=== PATIENT | male | born 1955 | race Caucasian/White ===

== ENCOUNTER → 2016-06-13 | Outpatient (CLI) | payer BC ==
--- NOTE | 2016-06-13 12:32 | CT ---
EXAMINATION TYPE: CT chest w con DATE OF EXAM: 06/13/2016 11:23 AM COMPARISON: 06/29/2015 and 09/02/2006 HISTORY: 61-year-old male Follow up nodule, solitary pulmonary nodule. TECHNIQUE: Contiguous axial scanning of the chest after the administration of 100 ml mL of Omnipaque 300. Coronal/sagittal reconstructions performed. CT DLP: 345mGycm. Automatic exposure control utilized for a dose reduction. FINDINGS: Heart is normal size without pericardial effusion. Aorta is normal caliber with conventional arch vessel branching anatomy. No thoracic lymphadenopathy Redemonstrated are scattered bilateral pulmonary nodules measuring up to 8 mm, all of which are stabl e. There appears to be very mild emphysematous change. Interval clearance of the previous nodular infiltrate in the basilar right middle lobe. Mild diffuse bronchial wall thickening is redemonstrated. No consolidation or pleural effusion. Hypodense lesions within the liver are unchanged from 06/29/2015 with a couple larger from 2006, all s uggestive of cysts. Bones: Mild endplate spondylosis mid to lower thoracic spine. No osseous destructive process. IMPRESSION: 1. The previously seen nodular infiltrate at the basilar right middle lobe has cleared. 2. Scattered benign pulmonary nodules measuring up to 8 mm are unchanged. 3. COPD with mild emphysema.
== END | disposition home or self-care (01) ==
LOC: RADCTMAIN 10:34
PROVIDERS: ATTEND Internal Medicine
DX: R91.8 Other nonspecific abnormal finding of lung field (principal); J44.9 Chronic obstructive pulmonary disease, unspecified
CPT/HCPCS: 71260; Q9967

== ENCOUNTER → 2016-06-13 | Outpatient (CLI) | payer BC ==
--- NOTE | 2016-06-13 11:08 | US ---
EXAMINATION TYPE: US abdomen complete DATE OF EXAM: 06/13/2016 10:31 AM COMPARISON: NONE CLINICAL HISTORY: R94.5 abnormal results of liver function test. elevated labwork, no complaints of p ain per pt EXAM MEASUREMENTS: Liver Length: 14.6 cm Gallbladder Wall: 0.2 cm CBD: 0.4 cm Spleen: 10.4 cm Right Kidney: 11.2 x 4.4 x 5.7 cm Left Kidney: 10.9 x 5.8 x 5.6 cm Findings: some exam limitations due to overlying bowel gas and barrel chested habitus Pancreas: body/tail gassed out, head/body wnl Liver: few scattered cysts, largest at left lobe 1.4cm with septation Gallbladder: seen with a fundal fold Evidence for sonographic Mccray's sign: wnl CBD: wnl Spleen: wnl Right Kidney: wnl Left Kidney: wnl Upper IVC: wnl Abd Aorta: wnl The liver is homogenous. Several scattered hepatic cysts with septations. The intrahepatic portion of the IVC and proximal abdominal aorta are within normal limits. There is no evidence of cholelithias is. Common bile duct is unremarkable. The visualized portions of the pancreas are homogenous. The spleen is unremarkable. Kidneys are symmetric and free of hydronephrosis. No renal lesions are seen . IMPRESSION: Hepatic cysts. Otherwise unremarkable study.
== END | disposition home or self-care (01) ==
LOC: RADUSWWP 10:03
PROVIDERS: ATTEND Internal Medicine
DX: K76.89 Other specified diseases of liver (principal); R94.5 Abnormal results of liver function studies
CPT/HCPCS: 76700

== ENCOUNTER 2016-06-14 12:46 | Emergency (ER) | payer BC ==
[2016-06-14 12:54] VITALS: BP 165/93; PULSE 76; RESP 20; TEMP 98.3
--- NOTE | 2016-06-14 13:20 | ED ---
General Adult HPI - General Chief complaint: Extremity Injury, Lower Stated complaint: Right Ankle Injury Time Seen by Provider: 06/14/16 13:13 Source: patient, RN notes reviewed Mode of arrival: ambulatory Limitations: no limitations - History of Present Illness Initial comments: Patient 61-year-old male who presents emergency room today with chief complaint of injury to the right ankle that occurred earlier this morning. He does admit that he rolled it when he was working out. Does admit to pain over the lateral aspect. He denies any other injuries or complaints. Patient denies any recent fever, chills, shortness of breath, chest pain, back pain, abdominal pain, nausea or vomiting, numbness or tingling, dysuria or hematuria, constipation or diarrhea, headaches or visual changes, or any other complaints. - Related Data Home Medications Medication Instructions Recorded Confirmed Lisinopril [Zestril] 10 mg PO DAILY 06/14/16 06/14/16 Allergies Allergy/AdvReac Type Severity Reaction Status Date / Time aspirin Allergy Rash/Hives Verified 06/14/16 12:54 Review of Systems ROS Statement: Those systems with pertinent positive or pertinent negative responses have been documented in the HPI. ROS Other: All systems not noted in ROS Statement are negative. Past Medical History Past Medical History: Hypertension History of Any Multi-Drug Resistant Organisms: None Reported Additional Past Surgical History / Comment(s): skin cancer removed from right wrist in 2014 Past Psychological History: No Psychological Hx Reported Smoking Status: Never smoker Past Alcohol Use History: None Reported, Occasional Past Drug Use History: None Reported General Exam - General Exam Comments Initial Comments: General: The patient is awake and alert, in no distress, and does not appear acutely ill. Neck: The neck is supple, there is no tenderness or JVD. Cardiovascular: There is a regular rate and rhythm. No murmur, rub or gallop is appreciated. Respiratory: Lungs are clear to auscultation, respirations are non-labored, breath sounds are equal. No wheezes, stridor, rales, or rhonchi. Musculoskeletal: Patient does have moderate swelling over the lateral aspect of the right ankle. Sensations are intact pulses equal bilaterally 2+. Patient does have tenderness over lateral malleolus. Tender in the ATFL area. No tenderness down into the metatarsals. No tenderness to the right knee. Neurological: A&O x 3. CN II-XII intact, There are no obvious motor or sensory deficits. Coordination appears grossly intact. Speech is normal. Skin: Skin is warm and dry and no rashes or lesions are noted. Psychiatric: Normal mood and affect. Limitations: no limitations Course Vital Signs 06/14/16 12:48 Temperature 98.3 F Pulse Rate 76 Respiratory 20 Rate Blood Pressure 165/93 O2 Sat by Pulse 98 Oximetry Medical Decision Making - Medical Decision Making Patient's x-rays reviewed shows no acute fracture dislocation. Results were discussed with the patient. Patient will be placed in Aircast blood here in the emergency room. Advised follow-up the next 7 tenderness for repeat x-rays if symptoms persist. Advised continued ice elevate. Disposition Clinical Impression: Ankle sprain Disposition: HOME SELF-CARE Condition: Good Instructions: Ankle Sprain (ED) Additional Instructions: Please continue to ice elevate the affected area these 4 times a day for 20 minutes at a time. Please follow-up with family doctor or orthopedics in 7-10 days for repeat x-rays if symptoms persist. Please return to emergency room for any other concerns. Referrals: Leti Pritchard MD [Primary Care Provider] - 1-2 days Samuel Frey DO [Doctor of Osteopathic Medicine] - 1-2 days Time of Disposition: 13:52
--- NOTE | 2016-06-14 13:43 | XR ---
EXAMINATION TYPE: XR ankle complete RT DATE OF EXAM: 06/14/2016 1:17 PM COMPARISON: NONE HISTORY: 61-year-old male right ankle pain and swelling after twisting injury today TECHNIQUE: 3 views FINDINGS: There is anterior and lateral malleolar soft tissue swelling with underlying ankle joint effusion. An kle mortise remains congruent with preservation of the distal tibiofibular overlap. No acute fracture , subluxation, or dislocation. IMPRESSION: Anterior and lateral soft tissue swelling. No acute osseous abnormality seen.
== END 2016-06-14 14:31 | disposition home or self-care (01) ==
LOC: EC 12:46
DX: S93.409A Sprain of unspecified ligament of unspecified ankle, initial encounter (principal); X50.1XXA Overexertion from prolonged static or awkward postures, initial encounter; I10 Essential (primary) hypertension; Z79.899 Other long term (current) drug therapy; Z88.6 Allergy status to analgesic agent
CPT/HCPCS: 73610; 99283; L4350

== ENCOUNTER → 2017-12-16 | Outpatient (CLI) | payer BC | END | disposition home or self-care (01) | LOC: LABWHC1 10:47 | PROVIDERS: ATTEND Otolaryngology | DX: J30.89 Other allergic rhinitis (principal) | CPT/HCPCS: 36415 ==

== ENCOUNTER → 2018-09-18 | Outpatient (CLI) | payer BC ==
[2018-09-18 09:33] LABS: HCT 47.1 % (39.0-53.0); HGB 15.7 gm/dL (13.0-17.5); MCH 30.9 pg (25.0-35.0); MCHC 33.4 g/dL (31.0-37.0); MCV 92.6 fL (80.0-100.0); Mean Platelet Volume 12.8; RBC 5.09 m/uL (4.30-5.90); RDW 12.4 % (11.5-15.5); WBC 5.6 k/uL (3.8-10.6)
[2018-09-18 15:15] LABS: Eosinophils # (M) 0.34 k/uL (0-0.7); Lymphocytes # (M) 0.84 k/uL (1.0-4.8); Monocytes # (M) 0.95 k/uL (0-1.0); Neutrophils # (M) 3.47 k/uL (1.3-7.7); Neutrophils % (M) 62 %; Nucleated Red Blood Cells 0 /100 WBC (0-0); Total Cells Counted 100
== END | disposition home or self-care (01) ==
LOC: LABWHC1 08:05
PROVIDERS: ATTEND Physician Assistant Medical
DX: L11.1 Transient acantholytic dermatosis [Grover] (principal)
CPT/HCPCS: 36415; 82955; 85025

== ENCOUNTER 2019-10-04 15:53 | Emergency (ER) | payer BC ==
[2019-10-04 15:58] VITALS: BP 159/87; PULSE 78; RESP 18; TEMP 97.9
[2019-10-04] MEDS ORDERED: LIDOCAINE 1% INJ 10MG/ML (20 ML MDV) SQ ONE (16:20)
[2019-10-04] MEDS ORDERED: DIPH,PERTUS(ACELL)TETVAC-LF 0.5 ML VIAL IM ONE (16:21)
--- NOTE | 2019-10-04 16:39 | ED ---
Head Injury HPI - General Source: patient, RN notes reviewed, old records reviewed Mode of arrival: wheelchair Limitations: no limitations <Tasha Du - Last Filed: 10/07/19 16:46> <Susan Mello - Last Filed: 10/10/19 01:06> - General Chief complaint: Head Injury Stated complaint: Fall, head injury Time Seen by Provider: 10/04/19 15:59 - History of Present Illness Initial comments: 64 year old male presents to ED with CC of head injury and laceration to the back of the head. Patient reports he was getting into his truck after a doctor appt and and slipped and hit his head on the edge of the door in the vehicle. Patient reports no loss of consciousness. PAtient is not on blood thinners. This occured 4 hours prior to arrival. Patient denies AMS or confusion or visual changes. Denies weakness or dizziness or nausea. (Tasha Du) - Related Data Home Medications Medication Instructions Recorded Confirmed Lisinopril [Zestril] 10 mg PO DAILY 06/14/16 06/14/16 Previous Rx's Medication Instructions Recorded Hydrocodone/Acetaminophen [[place] 1 tab PO Q6HR PRN #12 tab 03/03/18 5-325] Allergies/Adverse reactions: Allergies Allergy/AdvReac Type Severity Reaction Status Date / Time aspirin Allergy Rash/Hives Verified 03/03/18 21:11 Penicillins Allergy Rash/Hives Verified 10/04/19 15:57 Review of Systems ROS Other: All systems not noted in ROS Statement are negative. <Tasha Du - Last Filed: 10/07/19 16:46> ROS Other: All systems not noted in ROS Statement are negative. <Susan Mello - Last Filed: 10/10/19 01:06> ROS Statement: Those systems with pertinent positive or pertinent negative responses have been documented in the HPI. Past Medical History Past Medical History: Hypertension History of Any Multi-Drug Resistant Organisms: None Reported Past Surgical History: No Surgical Hx Reported Additional Past Surgical History / Comment(s): skin cancer removed from right wrist in 2014 Past Psychological History: No Psychological Hx Reported Smoking Status: Never smoker Past Alcohol Use History: None Reported, Occasional Past Drug Use History: None Reported <Tasha Du - Last Filed: 10/07/19 16:46> General Exam Limitations: no limitations General appearance: alert, in no apparent distress Head exam: Present: normocephalic, normal inspection. Absent: atraumatic (4cm laceration over posterior scalp. linear) Eye exam: Present: normal appearance, PERRL, EOMI. Absent: scleral icterus, conjunctival injection, periorbital swelling ENT exam: Present: normal exam, mucous membranes moist Neck exam: Present: normal inspection. Absent: tenderness, meningismus, lymphadenopathy Respiratory exam: Present: normal lung sounds bilaterally. Absent: respiratory distress, wheezes, rales, rhonchi, stridor Cardiovascular Exam: Present: regular rate, normal rhythm, normal heart sounds. Absent: systolic murmur, diastolic murmur, rubs, gallop, clicks GI/Abdominal exam: Present: soft, normal bowel sounds. Absent: distended, tenderness, guarding, rebound, rigid Neurological exam: Present: alert, oriented X3, CN II-XII intact Psychiatric exam: Present: normal affect, normal mood Skin exam: Present: warm, dry, intact, normal color. Absent: rash <Tasha Du - Last Filed: 10/07/19 16:46> - General Exam Comments Initial Comments: 64 year old male, no acute distress. Alert and oriented X3. (Tasha Du) Course Vital Signs 10/04/19 15:55 Temperature 97.9 F Pulse Rate 78 Respiratory 18 Rate Blood Pressure 159/87 O2 Sat by Pulse 98 Oximetry Procedures - Laceration Laceration #1 Site: scalp Size (cm): 4 Description: linear Depth: simple, single layer Anesthetic Used: lidocaine 1% Anesthesia Technique: local infiltration Amount (mls): 5 Pre-repair: wound explored, irrigated extensively Type of Sutures: other (staple) Number of Sutures: 4 Patient Tolerated Procedure: well, no complications <Tasha Du - Last Filed: 10/07/19 16:46> Medical Decision Making <Tasha Du - Last Filed: 10/07/19 16:46> <Susan Mello - Last Filed: 10/10/19 01:06> - Medical Decision Making 64 year old male with posterior scalp laceration from hitting on car door frame. PAtient has no LOC. No mental statsu changes and no neurodeficits. Patient injury was 4 hours ago. Patient laceration was cleaned and vclosed with [address] PAtient [address] scan and through shared decision making decided against this. Discussed staple care and monitor for infection. (Tasha Du) I was available for consultation in the emergency department. The history and physical exam were done by the midlevel provider. I was consulted for this patients care. I reviewed the case with the midlevel provider and based on their presentation of the patient, I agree with the assessment, medical decision making and plan of care as documented. Chart was dictated using Qiniu dictation software. Attempts were made to correct any dictation errors however some typographical errors may persist. Patient was seen during a national state of emergency due to the Covid-19 pandemic. (Susan Mello) Disposition Is patient prescribed a controlled substance at d/c from ED?: No Time of Disposition: 16:39 <Tasha Du - Last Filed: 10/07/19 16:46> <Susan Mello - Last Filed: 10/10/19 01:06> Clinical Impression: Scalp laceration Disposition: HOME SELF-CARE Condition: Good Instructions (If sedation given, give patient instructions): Concussion (ED), Staple Care (ED) Additional Instructions: Please return to the emergency room in 7-10 days to have juan daniel removed. Please leave wound covered for the first 24-48 hours and then leave open to air after that time. Please use clean soap and water to clean the suture area to prevent s cabbing over the top of your juan daniel. Please watch for any signs of infection which may include but not limited to increased pain, swelling, redness, fever or chills. Please return to the emergency room if any signs of infection do occur. Please return to the emergency room for any other concerns or complications. Referrals: Leti Pritchard MD [Primary Care Provider] - 1-2 days
== END 2019-10-04 17:00 | disposition home or self-care (01) ==
LOC: EC 15:53
DX: S01.01XA Laceration without foreign body of scalp, initial encounter (principal); I10 Essential (primary) hypertension; Z79.899 Other long term (current) drug therapy; Z88.0 Allergy status to penicillin; Z88.6 Allergy status to analgesic agent; Z85.828 Personal history of other malignant neoplasm of skin; Z23 Encounter for immunization; W19.XXXA Unspecified fall, initial encounter
CPT/HCPCS: 90715; 90471; 99283; J2001

== ENCOUNTER 2020-05-15 13:07 | Day surgery (SDC) | payer BC ==
[~2020-05-15 13:07] MED LIST: Pre Op ABX Message 1 EACH MISC MISCELLANE ONE
[2020-05-15] MEDS ORDERED: LACTATED RINGERS 1,000 ML IV ONE ×3 (13:19→16:15)
[2020-05-15] MEDS ORDERED: LIDOCAINE 1% (10MG/ML) FOR IV START INTRADERMA ONE (13:49)
[2020-05-15] MEDS ORDERED: ONDANSETRON 4 MG/2 ML VIAL ONE (13:52)
[2020-05-15] MEDS ORDERED: HYDROmorphone (PF) 1 MG/ML ONE (13:54)
[2020-05-15] MEDS ORDERED: PROPOFOL 10 MG/ML 20 ML VIAL IV ONE (13:54)
[2020-05-15] MEDS ORDERED: fentaNYL (PF) 50 MCG/ML 2 ML AMP ONE (13:54)
[2020-05-15] MEDS ORDERED: MIDAZOLAM 2 MG/2 ML VIAL ONE (13:54)
[2020-05-15] MEDS ORDERED: LIDOCAINE 1% INJ 10MG/ML (20 ML MDV) ONE (13:54)
[2020-05-15] MEDS ORDERED: KETOROLAC 15 MG/ML 1 ML VIAL ONE (13:54)
[2020-05-15] MEDS ORDERED: HYDROmorphone 0.2 MG/1 ML SYRINGE IVP PRN (14:00)
[2020-05-15] MEDS ORDERED: HYDROcodone/APAP 5-325MG 1 EACH TAB PO PRN (14:00)
[2020-05-15] MEDS ORDERED: ONDANSETRON 4 MG/2 ML VIAL IVP PRN (14:00)
[2020-05-15] MEDS ORDERED: hydrOXYzine pamoate 25 MG CAP PO PRN (14:00)
[2020-05-15] MEDS ORDERED: HYDROmorphone 1 MG/ML 1 ML SYRINGE IVP PRN (14:00)
[2020-05-15] MEDS ORDERED: HYDROmorphone 0.5 MG/0.5 ML SYRINGE IVP PRN (14:00)
[2020-05-15] MEDS ORDERED: SENNOSIDES-DOCUSATE SODIUM 1 EACH TAB PO PRN (14:00)
[2020-05-15] MEDS ORDERED: BUPIVACAINE (PF) 0.25% 30 ML VIAL SQ ONE (14:45)
--- NOTE | 2020-05-15 14:56 | P.OP ---
Date of Procedure: 05/15/20 Preoperative Diagnosis: Rupture patellar tendon right knee Postoperative Diagnosis: Rupture patellar tendon right knee Procedure(s) Performed: Patellar tendon repair right knee Anesthesia: GETA Surgeon: Gurjit Marie Grape Cutter #1: Jodi Johnson Estimated Blood Loss (ml): 10 Pathology: none sent Condition: stable Disposition: PACU Indications for Procedure: This is a 64-year-old gentleman that sustained an injury to his right knee proximally week ago. MRI was performed which showed a rupture of his patellar tendon, and after discussing the surgical and nonsurgical treatment options with him and his at length I've recommended repair of the patellar tendon of his right knee and informed consent was obtained. Operative Findings: The operative findings are consistent with a rupture of patellar tendon of the right knee Description of Procedure: Patient was seen and evaluated in the preoperative area, and the operative site was marked with a skin marker. Patient was then brought to the operating room and given 2 g of Ancef intravenously. A general anesthetic was administered by the anesthesia department. Tourniquet was placed on the right upper thigh and the right lower extremities and prepped and draped in the usual sterile fashion. A universal timeout was then performed confirming the patient's name, surgical site, ALLERGIES, and consent. The right lower extremity was then exsanguinated and the tourniquet was inflated to 250 mmHg. Straight midline incision was then made with a skin subcu tissues tissue sharply incised. The patellar tendon was readily visualized and was found to be completely ruptured off the inferior pole of the patella. There was a hematoma which was evacuated and there was some fibrotic tissue which was excised. Next, utilizing #5 FiberWire modified Krackow suture's were placed in the proximal portion of the patellar tendon. Next drill holes were placed through the patella and the sutures were passed of these drill holes. The suture was then tied at the superior aspect of the patella after the patellar tendon was cinched up against the inferior pole patella. #1 Vicryl suture was then used to repair the retinaculum around the patellar tendon rupture. The knee was then taken through a light range of motion and the repair was found to be stable. The knee was then irrigated with pulsatile lavage. 30 mL of quarter percent plain Marcaine were injected about the surgical site. 3-0 Vicryl was then used to repair the subcu tissues tissue, followed by juan daniel for the skin. Sterile dressing was then applied. Patient was then placed a long leg well-padded and molded cast. Leg was casted in full extension. Patient was then transferred recovery room stable condition. Asst. GRACIA Diaz was required due the complexity of surgery the need for skilled surgical sales representative.
[2020-05-15] MEDS ORDERED: HYDROmorphone 0.5 MG/0.5 ML SYRINGE IVP ONE ×2 (15:35→15:44)
[2020-05-15] MEDS: HYDROcodone/APAP 5-325MG 1 EACH TAB PO PRN (19:36)
[2020-05-16] MEDS: HYDROcodone/APAP 5-325MG 1 EACH TAB PO PRN ×4 (04:22→22:30)
[2020-05-16 06:47] LABS: Basophils % (A) 0 %; Eosinophils # (A) 0.2 k/uL (0-0.7); Eosinophils % (A) 2 %; HCT 34.1 % (39.0-53.0); HGB 11.6 gm/dL (13.0-17.5); Lymphocytes # (A) 0.8 k/uL (1.0-4.8); Lymphocytes % (A) 11 %; MCH 30.8 pg (25.0-35.0); MCHC 33.9 g/dL (31.0-37.0); Monocytes # (A) 0.7 k/uL (0-1.0); Monocytes % (A) 10 %; Neutrophils # (A) 5.6 k/uL (1.3-7.7); Neutrophils % (A) 75 %; Platelet Count 246 k/uL (150-450); RBC 3.75 m/uL (4.30-5.90); WBC 7.4 k/uL (3.8-10.6)
--- NOTE | 2020-05-16 08:32 | P.PN ---
Subjective Progress Note Date: 05/16/20 This is a 64-year-old male who is status post patellar tendon repair right knee. This is postoperative day #1 and patient is seen and evaluated at bedside with Dr. Gurjit Marie. Patient states that his pain is well controlled. Patient states that he is concerned about getting into his family vehicle with a long leg cast on. Patient states that he has not worked with physical therapy yet. Patient denies any fever/chills, numbness, weakness, tingling, abdominal pain, shortness of breath or chest pain. Objective - Vital Signs Vital signs: Vital Signs Temp 98.1 F 05/16/20 07:39 Pulse 58 L 05/16/20 07:39 Resp 16 05/16/20 07:39 BP 127/73 05/16/20 07:39 Pulse Ox 95 05/16/20 07:39 Intake & Output 05/15/20 05/16/20 05/16/20 18:59 06:59 18:59 Intake Total 1050 Output Total 10 600 Balance 1040 -600 Weight 83.915 kg Intake: IV 1050 Output: Urine 600 Estimated Blood Loss 10 Other: # Voids 0 1 - Exam Vital signs are stable. Patient is in no acute distress and is alert and oriented 3. Cast is clean, dry and intact. Patient has good range of motion of the toes of the right foot. Right lower extremity is warm and well perfused. Sensation intact. Neurovascular status and circulatory status are intact. - Labs CBC & Chem 7: 05/16/20 06:26 Labs: Abnormal Lab Results - Last 24 Hours (Table) 05/16/20 Range/Units 06:26 RBC 3.75 L (4.30-5.90) m/uL Hgb 11.6 L (13.0-17.5) gm/dL Hct 34.1 L (39.0-53.0) % Lymphocytes # 0.8 L (1.0-4.8) k/uL Assessment and Plan Assessment: Status post patellar tendon repair right knee (1) Patellar tendon rupture Current Visit: Yes Status: Acute Code(s): S86.819A - STRAIN OF MUSC/TEND AT LOWER LEG LEVEL, UNSP LEG, INIT SNOMED Code(s): 80717937 Plan: 1. Continue routine postoperative care and pain control. 2. Keep cast clean, dry and intact. 3. Rest and elevate the right lower extremity. 4. May bear weight as tolerated to the right lower extremity. 5. Xarelto for DVT prophylaxis. 6. Physical therapy for mobilization. 7. Possible discharge home later today. Patient may need arrangements for transportation.
[2020-05-16] MEDS: RIVAROXABAN 10 MG TAB PO SCH (09:24)
[2020-05-17 08:03] VITALS: RESP 16
--- NOTE | 2020-05-17 09:40 | P.DS ---
Providers Expected date of discharge: 05/17/20 Attending physician: Gurjit Marie Consults: 05/16/20 11:40 Consult Physician Routine Consulting Provider: Fermin Burrell Consult Reason/Comments: medical management Do you want consulting provider notified?: Yes Primary care physician: Leti Pritchard - Discharge Diagnosis(es) (1) Patellar tendon rupture Current Visit: Yes Status: Acute Hospital Course: This is a 64-year-old male who sustained a right knee injury resulting in patellar tendon rupture. The patient presented for evaluation as an outpatient. After discussion and consideration patient elects to proceed with patellar tendon repair of the right knee. The patient is seen preoperatively by Dr. Marie. Patient is [facility] to [facility] 05/15/2020 for patellar tendon repair of the right knee. The procedure is performed without complication or sequelae. The patient is doing well postoperatively. Labs and vital signs are stable on day of discharge. On day of discharge patient's cast is clean, dry and intact. Neurovascular status to the right lower extremity is intact. Patient is discharged to rehab in good condition. Opioid start talking form is reviewed and signed. Please see med rec for accurate list of home medications. Plan - Discharge Summary Discharge Rx Participant: Yes New Discharge Prescriptions: New HYDROcodone/APAP 5-325MG [[place] 5-325] 1 - 2 tab PO Q6HR PRN #48 tab PRN Reason: Pain Sennosides [Senokot] 2 tab PO DAILY PRN #60 tablet PRN Reason: Constipation Rivaroxaban [Xarelto] 10 mg PO DAILY #30 tab No Action Hydrocodone/Acetaminophen [[place] 5-325] 1 tab PO Q6HR PRN #12 tab PRN Reason: Pain diphenhydrAMINE HCL [Benadryl] 25 mg PO HS Triamterene/Hydrochlorothiazid [Triamterene-Hctz 37.5-25 mg Tb] 1 each PO Q2D Discharge Medication List Hydrocodone/Acetaminophen [[place] 5-325] 1 tab PO Q6HR PRN #12 tab 03/03/18 [Rx] Triamterene/Hydrochlorothiazid [Triamterene-Hctz 37.5-25 mg Tb] 1 each PO Q2D 05/15/20 [History] diphenhydrAMINE HCL [Benadryl] 25 mg PO HS 05/15/20 [History] HYDROcodone/APAP 5-325MG [[place] 5-325] 1 - 2 tab PO Q6HR PRN #48 tab 05/16/20 [Rx] Rivaroxaban [Xarelto] 10 mg PO DAILY #30 tab 05/16/20 [Rx] Sennosides [Senokot] 2 tab PO DAILY PRN #60 tablet 05/16/20 [Rx] Follow up Appointment(s)/Referral(s): Gurjit Marie DO [Doctor of Osteopathic Medicine] - 05/28/20 9:30 am Activity/Diet/Wound Care/Special Instructions: Keep cast clean and dry. Rest and elevate. Please take medications as prescribed. Please take Xarelto once daily for 30 days to help prevent blood clots. Please follow up with [facility] and call with any questions or concerns, . Patient requires a wheelchair to complete his ADLS which cannot be achieved with a walker or cane due to the right patella tendon tear with repair and long leg cast. Patient is able to self propel. Discharge Disposition: HOME WITH HOME HEALTH SERVICES
[2020-05-17] MEDS: RIVAROXABAN 10 MG TAB PO SCH (11:00)
[2020-05-17] MEDS: HYDROcodone/APAP 5-325MG 1 EACH TAB PO PRN (12:00)
--- NOTE | 2020-05-17 14:40 | P.CONS ---
History of Present Illness - Reason for Consult Consult date: 05/16/20 Hypertension - History of Present Illness His is a pleasant 64-year-old male was admitted for right knee arthroplasty sepsis and surgery clinically doing well patient blood pressure is well- controlled and expected to go down patient is on diuretics for hypertension. Patient denied any fever chills nausea vomiting patient is passing gas did not move his bowel pain is well controlled. Plan to be discharged to subacute re habilitation. Review of Systems REVIEW OF SYSTEMS: CONSTITUTIONAL: No fever, no malaise, no fatigue. HEENT: No recent visual problems or hearing problems. Denied any sore throat. CARDIOVASCULAR: No chest pain, orthopnea, PND, no palpitations, no syncope. PULMONARY: No shortness of breath, no cough, no hemoptysis. GASTROINTESTINAL: No diarrhea, no nausea, no vomiting, no abdominal pain. NEUROLOGICAL: No headaches, no weakness, no numbness. HEMATOLOGICAL: Denies any bleeding or petechiae. GENITOURINARY: Denies any burning micturition, frequency, or urgency. MUSCULOSKELETAL/RHEUMATOLOGICAL: Denies any joint pain, swelling, or any muscle pain. ENDOCRINE: Denies any polyuria or polydipsia. The rest of the 14-point review of systems is negative. Past Medical History Past Medical History: Cancer, Hypertension Additional Past Medical History / Comment(s): myositis (muscle weakness), skin CA History of Any Multi-Drug Resistant Organisms: None Reported Past Surgical History: No Surgical Hx Reported Additional Past Surgical History / Comment(s): skin cancer removed from right wrist in 2014 Past Anesthesia/Blood Transfusion Reactions: No Reported Reaction Past Psychological History: No Psychological Hx Reported Smoking Status: Never smoker Past Alcohol Use History: None Reported, Occasional Past Drug Use History: None Reported Medications and Allergies Home Medications Medication Instructions Recorded Confirmed Type Hydrocodone/Acetaminophen [Hearne 1 tab PO Q6HR PRN #12 tab 03/03/18 05/15/20 Rx 5-325] Triamterene/Hydrochlorothiazid 1 each PO Q2D 05/15/20 05/15/20 History [Triamterene-Hctz 37.5-25 mg Tb] diphenhydrAMINE HCL [Benadryl] 25 mg PO HS 05/15/20 05/15/20 History HYDROcodone/APAP 5-325MG [Hearne 1 - 2 tab PO Q6HR PRN #48 tab 05/16/20 Rx 5-325] Rivaroxaban [Xarelto] 10 mg PO DAILY #30 tab 05/16/20 Rx Sennosides [Senokot] 2 tab PO DAILY PRN #60 tablet 05/16/20 Rx Allergies Allergy/AdvReac Type Severity Reaction Status Date / Time aspirin Allergy Rash/Hives Verified 05/15/20 13:42 Penicillins Allergy Rash/Hives Verified 05/15/20 13:42 Physical Exam Vitals: Vital Signs Temp Pulse Resp BP Pulse Ox 05/17/20 08:01 99.0 F 77 16 143/83 96 05/17/20 07:35 68 14 05/17/20 01:39 97.9 F 68 14 129/75 96 05/16/20 19:12 98.4 F 76 14 129/77 96 Intake and Output 05/16/20 05/17/20 05/17/20 22:59 06:59 14:59 Intake Total 200 Output Total 300 300 Balance -100 -300 Intake: Oral 200 Output: Urine 300 300 Other: Voiding Method Toilet Urinal # Voids 2 PHYSICAL EXAMINATION: GENERAL: The patient is alert and oriented x3, not in any acute distress. Well developed, well nourished. HEENT: Pupils are round and equally reacting to light. EOMI. No scleral icterus. No conjunctival pallor. Normocephalic, atraumatic. No pharyngeal erythema. No thyromegaly. CARDIOVASCULAR: S1 and S2 present. No murmurs, rubs, or gallops. PULMONARY: Chest is clear to auscultation, no wheezing or crackles. ABDOMEN: Soft, nontender, nondistended, normoactive bowel sounds. No palpable organomegaly. MUSCULOSKELETAL: Deferred to orthopedic surgery EXTREMITIES: No cyanosis, clubbing, or pedal edema. NEUROLOGICAL: Gross neurological examination did not reveal any focal deficits. SKIN: No rashes. Results CBC & Chem 7: 05/16/20 06:26 Assessment and Plan Plan: -Hypertension: Hold off on antidepressant medications to prevent perioperative hypotension. -Right knee arthroplasty: Patient is on xarelto for anticoagulation pain management as per primary service
--- NOTE | 2020-05-17 14:41 | P.PN ---
Subjective Patient is clinically doing well no overnight events being discharged to subacute rehabitation which is appropriate patient still didn't move his bowel passing gas. Constitutional: Denied any fatigue denied any fever. Cardio vascular: denied any chest pain, palpitations Gastrointestinal denied any nausea vomiting Pulmonary: Denied any shortness of breath cough Neurologic denied any new focal deficits All inpatient medications were reviewed and appropriate changes in these medications as dictated in the interval history and assessment and plan. Objective - Vital Signs Vital signs: Vital Signs Temp 99.0 F 05/17/20 08:01 Pulse 77 05/17/20 08:01 Resp 16 05/17/20 08:01 BP 143/83 05/17/20 08:01 Pulse Ox 96 05/17/20 08:01 Intake & Output 05/16/20 05/17/20 05/17/20 18:59 06:59 18:59 Intake Total 200 200 Output Total 600 Balance 200 -400 Intake: Oral 200 200 Output: Urine 600 Other: Voiding Method Toilet Urinal # Voids 2 - Exam PHYSICAL EXAMINATION: GENERAL: The patient is alert and oriented x3, not in any acute distress. Well developed, well nourished. HEENT: Pupils are round and equally reacting to light. EOMI. No scleral icterus. No conjunctival pallor. Normocephalic, atraumatic. No pharyngeal erythema. No thyromegaly. CARDIOVASCULAR: S1 and S2 present. No murmurs, rubs, or gallops. PULMONARY: Chest is clear to auscultation, no wheezing or crackles. ABDOMEN: Soft, nontender, nondistended, normoactive bowel sounds. No palpable organomegaly. MUSCULOSKELETAL: Deferred to orthopedic surgery EXTREMITIES: No cyanosis, clubbing, or pedal edema. NEUROLOGICAL: Gross neurological examination did not reveal any focal deficits. SKIN: No rashes. - Labs CBC & Chem 7: 05/16/20 06:26 Assessment and Plan Plan: -Hypertension: Patient can be resumed on diuretics for hypertension -Right knee arthroplasty: Patient is on xarelto for anticoagulation pain manag ement as per primary service
[2020-05-17 14:53] VITALS: BP 142/87; PULSE 80; TEMP 98.2
== END 2020-05-17 16:08 ==
LOC: OR 13:07 → 4SSUR 15:13 → OR 05-17 16:08
PROVIDERS: ATTEND Orthopaedic Surgery
DX: S76.111A Strain of right quadriceps muscle, fascia and tendon, initial encounter (principal); X50.1XXA Overexertion from prolonged static or awkward postures, initial encounter; M17.11 Unilateral primary osteoarthritis, right knee; M60.9 Myositis, unspecified; L98.9 Disorder of the skin and subcutaneous tissue, unspecified; Z97.3 Presence of spectacles and contact lenses; Z85.828 Personal history of other malignant neoplasm of skin; Z83.3 Family history of diabetes mellitus; Z98.890 Other specified postprocedural states; Z82.49 Family history of ischemic heart disease and other diseases of the circulatory system; Z79.01 Long term (current) use of anticoagulants; Z79.891 Long term (current) use of opiate analgesic; Z79.899 Other long term (current) drug therapy; Z88.6 Allergy status to analgesic agent; Z88.0 Allergy status to penicillin
CPT/HCPCS: 27380; 97530 ×2; 97161; 97166; 85025; J2250; J0690 ×2; J2001; J3010; J1170 ×2; J1885; J2704